=== PATIENT | male | born 1995 | race Native Hawaiian/Other Pacific Islander ===

== ENCOUNTER 2018-12-07 12:15 | Emergency (ER) | payer OTHER ==
[2018-12-07 12:23] VITALS: BP 141/86
[2018-12-07] MEDS ORDERED: cefTRIAXone 250 MG VIAL IM STA (12:45)
[2018-12-07] MEDS ORDERED: DOXYCYCLINE 100 MG TABLET PO STA (12:45)
[2018-12-07] MEDS ORDERED: LIDOCAINE 1% 2 ML VIAL MC ONE (12:45)
--- NOTE | 2018-12-07 12:49 | ED Physician Documentation ---
History of Present Illness - Stated complaint Stated Complaint: MALE - Chief complaint Chief Complaint: General - History obtained from History obtained from: Patient (22-year-old gentleman, monogamous sexually active presents with left testicular pressure that is worse when sitting and better when walking for the last week. Similar prior single episode of epididymitis in the past.) Review of Systems Constitutional: denies: Fever, Chills GI: denies: Abdominal Pain, Nausea, Vomiting : denies: Dysuria PD PAST MEDICAL HISTORY - Present Medications Home Medications: Ambulatory Orders Medication Instructions Recorded Confirmed Doxycycline Hyclate 100 mg PO BID #20 capsule 12/07/18 buPROPion [Wellbutrin Sr] 100 mg PO BID 12/07/18 12/07/18 - Allergies Allergies/Adverse Reactions: Allergies Allergy/AdvReac Type Severity Reaction Status Date / Time No Known Drug Allergies Allergy Verified 12/07/18 12:23 PD ED PE NORMAL - Vitals Vital signs reviewed: Yes - General General: Alert and oriented X 3, No acute distress - Abdomen Abdomen: Soft, Non tender - Male Male : Other (Testicles are normal lie and not swollen. He is tender towards the top of the left testicle. No hernia.) - Back Back: No CVA TTP, No spinal TTP - Neuro Neuro: Alert and oriented X 3, Normal speech Results - Vitals Vitals: Vital Signs - 24 hr 12/07/18 12:20 Temperature 36.7 C Heart Rate 92 Respiratory 20 Rate Blood Pressure 141/86 H O2 Saturation 99 Oxygen O2 Source Room air PD MEDICAL DECISION MAKING - ED course ED course: This is a 22-year-old gentleman with recurrent epididymitis. Nothing in the severity history or exam would be suggestive of torsion. No risk factors for STDs. Departure - Departure Disposition: Home, Self Care Clinical Impression: Acute epididymitis Condition: Good Record reviewed to determine appropriate education?: Yes Instructions: Epididymitis Dc Prescriptions: Doxycycline Hyclate 100 mg PO BID #20 capsule Comments: Call your doctor to arrange a follow-up appointment, make the next available appointment. In the interim, return anytime if worse or if new symptoms develop. Your blood pressure was elevated today on check into the emergency department. This does not mean that you have hypertension, it is a common phenomenon to come to the emergency department and have elevated blood pressure. I recommend that you see your primary care physician within the week to have it rechecked when you are feeling better.
== END 2018-12-07 13:09 | disposition home or self-care (01) ==
LOC: ED 12:15
DX: N45.1 Epididymitis (principal); R03.0 Elevated blood-pressure reading, without diagnosis of hypertension
CPT/HCPCS: 99282; 99283; A9270